=== PATIENT | male | born 1995 | race Caucasian/White ===

== ENCOUNTER 2021-02-15 07:09 | Emergency (ER) | payer OTHER, SELFPAY ==
--- NOTE | ~2021-02-15 | XR_ITS ---
EXAMINATION: XR chest 1V portable DATE: 02/15/2021 07:46 INDICATION: Fever. Malaise. TECHNIQUE: A single frontal view of the chest was obtained. COMPARISON: None. FINDINGS: The chest demonstrates clear lungs without pneumonia, pleural effusion, or pneumothorax. Th e heart size is normal. IMPRESSION: 1. No acute cardiopulmonary disease. Reviewed, dictated and finalized at location A. [employer]
[2021-02-15 07:12] VITALS: BP 120/78; PULSE 126; RESP 20; TEMP 36.8; O2SAT 99
[2021-02-15] MEDS: SODIUM CHLORIDE 0.9% IV 1,000 ML 999 ML IV CONT (07:42)
--- NOTE | 2021-02-15 07:46 | ED.SEIZURE ---
HPI - Seizure General Chief Complaint: Seizure Stated Complaint: seizure Time Seen by Provider: 02/15/21 07:10 History of Present Illness HPI Narrative: Patient is a 25-year-old male who presents to the ER status post seizure. Patient has history of epilepsy and takes Tegretol 600 mg twice daily. He did not take his morning dose. He reports his last seizure was about 5 days ago when he missed another dose. Patient also reports this morning he was febrile to 100.4 ?F. He endorses runny nose. He is vaccinated against Covid. No loss of taste or smell. No chest pain or chest pressure. No urinary complaints. Reports he has a dry mouth. Related Data Home Medications Medication Instructions Recorded Confirmed carbamazepine [Tegretol] 600 mg PO Q12H 02/15/21 Allergies Allergy/AdvReac Type Severity Reaction Status Date / Time No Known Allergies Allergy Verified 02/15/21 07:18 Review of Systems Review of Systems: All systems reviewed & are unremarkable except as noted in HPI and below Constitutional: Constitutional: Denies chills, Reports fever(s) and Denies weakness ENT: Denies dizziness and Denies sore throat Comments: Rhinorrhea Cardiovascular: Cardiovascular: Denies chest pain and Denies radiating jaw, neck or arm pain Respiratory: Respiratory: Denies cough, Denies dyspnea and Denies wheezing Gastrointestinal: Gastrointestinal: Denies abdominal pain, Denies diarrhea, Denies nausea and Denies vomiting Musculoskeletal: Musculoskeletal: Reports myalgias Neurologic: Denies focal weakness and Denies numbness Comments: Seizure Exam Narrative: GENERAL: Well-appearing, well-nourished, and in no acute distress. HEAD: Normocephalic, atraumatic. EYES: PERRL and EOMI. CHEST: Clear to auscultation. No respiratory distress. HEART: Regular rate and rhythm. Normal peripheral pulses. ABDOMEN: Soft, nontender, nondistended. EXTREMITIES: Normal range of motion. No edema. SKIN: Warm, dry, no rash. NEURO: Alert and oriented x3. Clear speech, no facial droop. PSYCH: Normal mood and affect. Course Course Emergency Course: Patient informed of results. Flu negative so we will swab him for Covid given his fever today. He has received his oral Tegretol. Hydrated and no longer tachycardic. Discharge home. Vital Signs Vital signs: Vital Signs Temperature 98.2 F 02/15/21 07:12 Pulse Rate 126 H 02/15/21 07:12 Respiratory Rate 20 02/15/21 07:12 Blood Pressure 120/78 02/15/21 07:12 Pulse Oximetry 99 02/15/21 07:12 Temperature 98.2 F 02/15/21 07:12 Pulse Rate 126 H 02/15/21 07:12 Respiratory Rate 20 02/15/21 07:12 Blood Pressure 120/78 02/15/21 07:12 Pulse Oximetry 99 02/15/21 07:12 MDM - Seizure Lab Data Result diagrams: 02/15/21 07:42 02/15/21 07:42 Labs: Lab Results 02/15/21 02/15/21 02/15/21 Range/Units 07:42 07:42 07:42 WBC 8.5 (4.5-10.0) K/mm3 RBC 4.18 L (4.6-6.20) M/mm3 Hgb 13.7 L (14.0-18.0) g/dL Hct 39.0 L (42.0-52.0) % MCV 93.3 (80-100) fl MCH 32.8 (26-34) pg MCHC 35.1 (32-36) g/dl RDW 11.6 (11.5-14.5) % Plt Count 167 (150-375) k/mm3 MPV 9.5 (7.4-10.4) fl Immature Gran % (Auto) 0.6 H (0-0.5) % Neut % (Auto) 87.1 H (45.5-73.1) % Lymph % (Auto) 3.8 L (18.3-44.2) % Emmons % (Auto) 7.8 (2.6-8.5) % Eos % (Auto) 0.2 (0-4.4) % Baso % (Auto) 0.5 (0.2-1.2) % Lymph # (Auto) 0.32 L (0.9-3.2) K/mm3 Emmons # (Auto) 0.7 H (0.1-0.6) K/mm3 Eos # (Auto) 0.0 (0-0.3) K/mm3 Baso # (Auto) 0.0 (0.0-0.1) K/mm3 Abs Immat Gran (auto) 0.05 H (0.00-0.031) K/mm3 Absolute Neuts (auto) 7.4 H (1.3-6.7) K/mm3 Absolute Nucleated RBC 0.0 (0.0-0.012) K/mm3 Nucleated RBC % 0.0 (0.0-0.2) % Sodium 134 L (137-145) mmol/L Potassium 4.4 (3.4-5.0) mmol/L Chloride 100 (98-107) mmol/L Carbon Dioxide 24 (22-30) mmol/L Anion Gap 10 (8-
[2021-02-15] MEDS: carBAMazepine 200 MG TABLET 600 MG PO (07:49)
[2021-02-15 07:52] LABS: Basophils Percent Auto 0.5 % (0.2-1.2); Eosinophils Percent Auto 0.2 % (0-4.4); Hemoglobin 13.7 g/dL (14.0-18.0); Immature Granulocyte Absolute 0.05 K/mm3 (0.00-0.031); Immature Granulocyte Percent A 0.6 % (0-0.5); Lymphocytes Absolute Auto 0.32 K/mm3 (0.9-3.2); Lymphocytes Percent Auto 3.8 % (18.3-44.2); Mean Corpuscular HGB Conc 35.1 g/dl (32-36); Mean Corpuscular Hemoglobin 32.8 pg (26-34); Mean Corpuscular Volume 93.3 fl (80-100); Mean Platelet Volume 9.5 fl (7.4-10.4); Monocytes Absolute Auto 0.7 K/mm3 (0.1-0.6); Monocytes Percent Auto 7.8 % (2.6-8.5); Neutrophils Absolute Auto 7.4 K/mm3 (1.3-6.7); Neutrophils Percent Auto 87.1 % (45.5-73.1); Platelet Count Result 167 k/mm3 (150-375); Red Blood Count 4.18 M/mm3 (4.6-6.20); Red Cell Distribution Width 11.6 % (11.5-14.5); White Blood Count 8.5 K/mm3 (4.5-10.0)
[2021-02-15 08:07] LABS: Alanine Aminotransferase 22 U/L (4-50); Albumin Level 4.7 g/dL (3.5-5.1); Alkaline Phosphatase 102 U/L (38-126); Anion Gap 10 mmol/L (8-16); Aspartate Amino Transferase 29 U/L (17-59); Bilirubin,Total 0.2 mg/dL (0.2-1.3); Blood Urea Nitrogen 9 mg/dL (9-20); Calcium 9.1 mg/dL (8.4-10.2); Carbon Dioxide 24 mmol/L (22-30); Chloride 100 mmol/L (98-107); Estimated CRCL calculation 123 ml/min; Estimated Glomerular Filt Rate > 60; Glucose 91 mg/dL (65-110); Potassium 4.4 mmol/L (3.4-5.0); Sodium 134 mmol/L (137-145)
[2021-02-15 08:10] LABS: Add Urine Microscopic? YES; Appearance Urine Cloudy (Clear); Bilirubin Urine Negative (Negative); Blood Urine 1+ (Negative); Color Urine Yellow (Yellow); Glucose Urine UA Negative (Negative); Ketones Urine Negative (Negative); Leukocyte Esterase Ur Negative LEU/UL (Negative); Mucus Urine Rare /lpf; Nitrate Urine Negative (Negative); Protein Urine 1+ mg/dL (Negative); RBC Urine 0-2 /hpf (0-2); Specific Grav Ur 1.016 (1.001-1.035); Urobilinogen Urine Negative mg/dL (<2.0); WBC Urine 0-3 /hpf
[2021-02-15 09:24] VITALS: BP 132/52; PULSE 102; RESP 20; O2SAT 97
[2021-02-15 20:10] LABS: SARS-CoV-2 RNA PCR Positive
== END 2021-02-15 10:32 | disposition home or self-care (01) ==
PROVIDERS: Emergency Provider Emergency Medicine; PCP Family Medicine
DX: G40.909 Epilepsy, unspecified, not intractable, without status epilepticus (principal); U07.1 COVID-19
CPT/HCPCS: 36415; 71045; 80053; 81001; 85025; 87804; 96361; 96365; 99284; A9270; C9803; J0131; J7030; U0003; U0005